=== PATIENT | female | born 1995 | race Two or more races ===

== ENCOUNTER 2019-03-04 21:06 | Emergency (ER) | payer SELFPAY ==
[~2019-03-04] VITALS: Ht 162.6 cm; Wt 58.4 kg
[2019-03-04 21:12] VITALS: BP 130/78
== END 2019-03-05 05:15 | disposition left against medical advice (07) ==
LOC: ER 21:06
DX: R51 Headache (principal); Z53.21 Procedure and treatment not carried out due to patient leaving prior to being seen by health care provider